=== PATIENT | female | born 1985 | race Caucasian/White ===

== ENCOUNTER 2023-06-20 21:34 | Inpatient (IN) | payer OTHER ==
--- OUTSIDE RECORDS SUMMARY | 2023-06-20 21:37 | XMS REPORT | Continuity of Care Document ---
Author Name Unknown Address [address] [place] [id number] [facility] thconnect Address [address] [place] [address] Care Team Providers Care Director Of Primary Name Role Phone Unavailable Unavailable Unavailable Payers Payer Name Policy Type Policy Number Effective Date Expirati on Date Source Results Test Description Test Time Test Comments Results Resul t Comments Source - US PELVIS COMPLETE 2018-10-29 14:10:00 Patient Name: JV BELTRAN Unit No: [id number] EXAMS: CPT CODE: [id number] US PELVIS COMPLETE 23554 PELVIC ULTRASOUND, 10/29/2018: COMPARISON: None CLINICAL HISTORY: AUB IN MENSTRUAL CYCLE TECHNIQUE: Transabdominal and endovaginal scanning was performed. FINDINGS: The uterus measures 7.3 x 2.8 x 4.1 cm. The endometrial cavity is empty with a thickness of 7 mm. No uterine fibroids were seen. The right ovary measures 3.2 x 2.2 x 2.3 cm and contains several small subcentimeter follicles. The left ovary measures 3.1 x 2.0 x 1.3 cm and contains small subcentimeter follicles. Doppler flow is demonstrated in both ovaries. No free pelvic fluid. CONCLUSION: Multiple small bilateral ovarian follicles. The possibility of PCOS is raised. at 1410 Reported and signed by: Lucas Irwin MD CC: Dinh Delvalle MD Technologist: Cheyenne Bonner RDMS Probe: Trnscrbd D/ (1410) [email or web address] Orig Print D/T: S: 10/29/2018 (1414) [facility] NAME: JV BELTRAN [facility] Dinh Finley [address] : 1985 AGE: 33 SEX: F [place] [id number] LOC: XavierRAD PHONE #: [phone] EXAM DATE: 10/29/2018 STATUS: REG CLI FAX #: [phone] RAD NO: Page 1 Signed Report Patient Name: JV BELTRAN Unit No: [id number] EXAMS: CPT CODE: [id number] US PELVIS COMPLETE 78544 (Continued) [facility] NAME: JV BELTRAN Radiology Department PHYS: [facility]. - Dinh Finley [address] : 1985 AGE: 33 SEX: F [place] [id number] LOC: XavierRAD PHONE #: [phone] EXAM DATE: 10/29/2018 STATUS: REG CLI FAX #: [phone] RAD NO: Page 2 Signed Report - US TRANSVAGINAL W/PELVIS 2018-10-29 14:10:00 Patient Name: JV BELTRAN Unit No: [id number] EXAMS: CPT CODE: [id number] US TRANSVAGINAL W/PELVIS 12052 PELVIC ULTRASOUND, 10/29/2018: COMPARISON: None CLINICAL HISTORY: AUB IN MENSTRUAL CYCLE TECHNIQUE: Transabdominal and endovaginal scanning was performed. FINDINGS: The uterus measures 7.3 x 2.8 x 4.1 cm. The endometrial cavity is empty with a thickness of 7 mm. No uterine fibroids were seen. The right ovary measures 3.2 x 2.2 x 2.3 cm and contains several small subcentimeter follicles. The left ovary measures 3.1 x 2.0 x 1.3 cm and contains small subcentimeter follicles. Doppler flow is demonstrated in both ovaries. No free pelvic fluid. CONCLUSION: Multiple small bilateral ovarian follicles. The possibility of PCOS is raised. at 1410 Reported and signed by: Lucas Irwin MD CC: Dinh Delvalle MD Technologist: Cheyenne Bonner RDMS Probe: [id number] Trnscrbd D/ (1410) [email or web address] Orig Print D/T: S: 10/29/2018 (3424) [facility] NAME: JV BELTRAN Radiology [facility] Dinh Finley [address] : 1985 AGE: 33 SEX: F [place] [address] LOC: Mckenna.RAD PHONE #: [phone] EXAM DATE: 10/29/2018 STATUS: REG CLI FAX #: [phone] RAD NO: Page 1 Signed Report Patient Name: JV BELTRAN Unit No: [id number] EXAMS: CPT CODE: [id number] US TRANSVAGINAL W/PELVIS 67039 (Continued) [facility] NAME: JV BELTRAN Radiology Department PHYS: HAR[facility]. - Dinh Finley [address] : 1985 AGE: 33 SEX: F [place] [address] LOC: F.RAD PHONE #: [phone] EXAM DATE: 10/29/2018 STATUS: REG CLI FAX #: [phone] RAD NO: Page 2 Signed Report
[2023-06-20 22:16] VITALS: BMI 21.3
[2023-06-20] MEDS: NA CHLORIDE 0.9% 1,000 ML IV SCH (22:33)
[2023-06-20] MEDS: MORPHINE 2 MG/ML SYR IV PRN (22:33)
[2023-06-20] MEDS: CIPROFLOXACIN 400mg IV 400 MG/200 ML BAG IV ONE (22:37)
[2023-06-21] MEDS: METRONIDAZOLE 500mg IVPB 500 MG/100 ML BAG IV SCH (00:45)
[2023-06-21] MEDS ORDERED: ONDANSETRON 4 MG/2 ML VIAL ONE (07:07)
[2023-06-21] MEDS ORDERED: ROCURONIUM 50 MG/5 ML VIAL IV ONE (07:07)
[2023-06-21] MEDS ORDERED: FENTANYL CITR 100 MCG/2 ML ONE (07:07)
[2023-06-21] MEDS ORDERED: propofoL 200 MG/20 ML VIAL IV ONE (07:07)
[2023-06-21] MEDS ORDERED: MIDAZOLAM HCL 2 MG/2 ML INJ ONE (07:07)
[2023-06-21] MEDS ORDERED: KETOROLAC 30 MG/ML INJ ONE (07:07)
[2023-06-21] MEDS ORDERED: LIDOCAINE 1% MPF 5 ML VIAL ONE (07:07)
[2023-06-21] MEDS ORDERED: dexAMETHasone 10 MG/ML VIAL ONE (07:37)
--- NOTE | 2023-06-21 07:49 | P.BOP ---
Preoperative diagnosis: acute perforated appendicitis, peritonitis, intrabdominal abscess Postoperative diagnosis: same Primary procedure: Laparoscopic appendectomy Secondary procedure: Laparoscopic drainage of intraperitoneal abscess Estimated blood loss: <20cc Specimen: culture, urvashi Findings: as above Anesthesia: General Complications: None Drain(s): HUNTER drain Transferred to: Recovery Room Condition: Good
[2023-06-21] MEDS ORDERED: SODIUM CHLORIDE 0.9% 10ML INJ IV PRN (08:28)
--- NOTE | 2023-06-21 08:37 | HP ---
Date of Admission: 06/20/2023 Diagnoses: Right lower quadrant abdominal pain, appendicitis with intraabdominal abscess. Indication: This is a 37-year-old patient who comes to us with 3 days history of abdominal pain. Singh watters thought it was just cramps and she tried to last night showed to a local ER around the a [place] and she was diagnosed with acute appendicitis and also what could be the beginning of an abscess. I was called in this institution. We were able to overnight transfer the patient to this instituti on, start IV hydration and basically antibiotics and schedule her emergently for a surgery. She dayron es any trauma. She denies any dysuria, hematuria, hematochezia, melena. Denies any recent traveling out of the country. Denies any family member sick at home. Past Medical History: None. Allergies: INCLUDE LATEX. Social History: She does not smoke. She does not drink alcohol. Family History: Noncontributory. Past Surgical History: Shoulder surgery, AC joint. Review of Systems: Ten points, otherwise, unremarkable. Physical Examination: General: Patient is awake, alert. HEENT: Pupils are equal and reactive. Anicteric. Neck: Supple. Chest: Clear. Heart: S1-S2. Abdomen: Soft with right lower quadrant tenderness with psoas signs and Rovsing sign positive, guard ing present. Genitalia: Deferred. Rectal: Deferred. Breasts: Deferred. Extremities: Good capillary refill. Neuro: Cranial nerves 2-12 grossly within normal limits. Blood Work: Reviewed shows a WBC count of 29. CAT scan of the abdomen and pelvis done at the [place], shows an acute appendicitis with possible what could be abscess around the appendix. Assessment And Plan: This is a 37-year-old patient with acute abdominal pain, peritonitis present, l eukocytosis and a CAT scan showing appendicitis with the possibility of an abscess. The patient full y explained, started on IV hydration, antibiotics and she was fully explained the benefits, alternati ves, and risks of urgent laparoscopic possible open appendectomy with benefits, alternatives, and ris ks include, but not limited to infection, bleeding, damage to adjacent structures, anesthesia complic ation, intraabdominal abscess, ND, and even . She also understands this may not relieve any sym ptoms. She might need more than one surgical intervention. She understands the importance of antibi otics after therapy, most likely we are going to have drained and most likely she will require severa l days of hospital stay. DUTCH Voice ID: [id number]
[2023-06-21] MEDS: PANTOPRAZOLE 40 MG INJ IVP SCH (09:00)
[2023-06-21] MEDS: PIPER TAZO 3.375 GM in NA CHLORIDE 0.9% 100 ML IV SCH (09:00)
[2023-06-21] MEDS ORDERED: CIPROFLOXACIN 400mg IV 400 MG/200 ML BAG IV SCH (09:00)
[2023-06-21] MEDS: HYDROMORPHONE HCL 1 MG/ML INJ IV PRN (12:21)
[2023-06-21 14:05] LABS: Specific Gravity > 1.030 (1.005-1.030); Transitional Epithelial <5 /HPF (None Seen); Urine Bacteria 20-50 /HPF (<20); Urine Bilirubin NEGATIVE (Negative); Urine Blood 3+ (OVER) (Negative); Urine Clarity Extremely Turbid (Clear); Urine Color Light-Orange (Yellow); Urine Glucose TRACE (Negative); Urine Mucus 4+ /HPF (None Seen); Urine Protein 2+ (Negative); Urine RBC >50 /HPF (None Seen); Urine Urobilinogen 1+ (Normal); Urine pH 6.5 (5.0-7.0)
--- NOTE | 2023-06-21 19:55 | OP ---
Date of Procedure: 06/21/2023 Surgeon: Dalton Guadarrama MD Preoperative Diagnoses: Acute perforated appendicitis, peritonitis, intraabdominal abscess. Postoperative Diagnoses: Acute perforated appendicitis, peritonitis, intraabdominal abscess. Procedures: Laparoscopic appendectomy, laparoscopic drainage of intraperitoneal abscess. Specimen: Culture of appendix. Findings: Right lower quadrant abscess with perforated appendicitis, peritonitis. Anesthesia: General plus local. Drains: HUNTER #10. Indications: This is a case of a 37-year-old female transferred from another institution with the ab ove diagnosis, admitted to the hospital. She was started on IV fluids, IV antibiotics and scheduled for emergent surgery. The benefits, alternatives, and risks of laparoscopic possible open appendecto my fully explained, which include, but not limited to infection, bleeding, damage to adjacent structu res, anesthesia complication, recurrence of abscess, FL, and even . She also understands this m ay not relieve her symptoms. She might need more than one surgical intervention. She understood and signed a consent. Description Of Procedure: The patient was brought to the operating room and placed in supine positio n. Anesthesia was done without complication. Abdominal area was prepped and draped in a sterile fas hion. A time-out was called. Local anesthesia was applied in the infraumbilical region. Incision w as carried down in the skin all the way down to fascia, which was opened under direct vision, but the peritoneum was encountered, opened under direct vision. Vicryl #1 was placed inside the fascia. Estrada sson trocar was carefully introduced. No bleeding was obtained. Immediately noticed the patient to have an abscess in the right lower quadrant with what it looked like a perforated appendicitis, so ca refully we proceeded to dissect the area properly to make sure the intestines were away and undamaged and found out at least the base of the appendix seemed to be spared for this, so we created a window in the base of the appendix, transected that with Endo WATSON 45 mm nonvascular and the mesoappendix wi th a 45 mm avascular. Before that I have to mention that we already have 5 mm trocars in direct visu alization placed in the suprapubic and left lower quadrant. Once we have the appendix dissected, we proceeded then to put the Endobag and removed the appendix through the umbilical incision. After delilah t, we proceeded to use irrigation at least more than 4 L of water just to irrigate the abdomen and lulu gurrola sure it is clean. We checked for hemostasis. We also left a HUNTER drain exiting through one of the trocar sites. Inspection once again of the area showed clear fluid. The area was profusely irrigate d. No bleeding. No bowel leak. At that moment, I proceeded to remove the trocars under direct visi on, deflated pneumoperitoneum, closed the fascia with #1 Vicryl, irrigated the subcutaneous tissue, c losed that with chromic and patrick. HUNTER drain was left to bulb suction. The patient tolerated the p rocedure well. The patient was sent to Recovery in stable condition. We expect this patient to be f or several days in the hospital with IV antibiotics. CESAR/MODL Voice ID: [id number] Report ID: [id number]
[2023-06-21] MEDS: clonazePAM 0.5 MG TAB PO ONE (22:18)
[2023-06-22 09:39] LABS: Absolute Lymphocytes (CBC) 1.1 K/uL (0.7-4.9); Hematocrit 33.6 % (36.0-45.0); Lymphocytes % 7.4 % (15.3-44.8); MCV 90.8 fL (80-100); MPV 7.5 fL (7.6-11.3); Platelets 289 thou/uL (152-406); RBC Red Blood Cell Count 3.69 M/uL (3.86-4.86)
[2023-06-22 11:10] LABS: Blood Morphology Comment NOT SEEN (NOT SEEN); Platelet Estimate ADEQ; White Blood Cell Scan OK (OK)
[2023-06-22] MEDS: clonazePAM 0.5 MG TAB PO SCH (12:07)
[2023-06-22] MEDS: POTASSIUM 25 MEQ EFFERV TAB PO ONE ×2 (12:44→21:48)
--- NOTE | 2023-06-22 13:36 | P.CNS ---
Date of Consult: 06/22/23 Requesting Physician: Dalton Guadarrama History of Present Illness: 37-year-old female with history of anxiety/depression was admitted to the hospital for acute appendicitis. Appendectomy was performed on 06/21/[address] Guadarrama, she was found to have acute perforated appendicitis with peritonitis and intra-abdominal abscess. Postoperatively HUNTER drain is in place. She has been doing well postoperatively, tolerating her diet today for the first time. Hospitalist service was consulted for medical management of her anxiety/depression. Allergies Latex, Natural Rubber Allergy (Verified 06/20/23 22:07) Rash Home Medications: Amphet Asp/Amphet/D-Amphet [Adderall 30 mg Tablet] 30 mg PO BID 06/20/23 Buspirone HCl [Buspar] 10 mg PO BID 06/20/23 clonazePAM [Clonazepam] 0.5 mg PO DAILY 06/20/23 - Past Medical/Surgical History Diabetic: No -: ADHD -: Depression -: anxiety -: right shoulder AC reconstrustion Psychosocial/ Personal History: Lives at home with significant other - Social History Smoking Status: Never smoker Alcohol use: Yes CD- Drugs: No Caffeine use: Yes Place of Residence: Home Review of Systems 10-point ROS is otherwise unremarkable General: Other (anxiety) Gastrointestinal: Abdominal Pain Physical Examination Temp Pulse Resp BP Pulse Ox 97.5 F 64 16 116/60 97 06/22/23 12:00 06/22/23 12:00 06/22/23 13:00 06/22/23 12:00 06/22/23 13:00 General: Alert, In no apparent distress, Oriented x3 HEENT: Atraumatic, PERRLA, Mucous membr. moist/pink Neck: Supple, 2+ carotid pulse no bruit, No LAD Respiratory: Clear to auscultation bilaterally, Normal air movement Cardiovascular: Regular rate/rhythm, Normal S1 S2 Gastrointestinal: Other (HUNTER drain in place) Musculoskeletal: No tenderness Integumentary: No rashes Neurological: Normal speech, Normal tone, Normal affect Laboratory Data (last 24 hrs) 06/22/23 06/22/23 09:29 09:29 WBC 15.00 H Hgb 11.2 L Hct 33.6 L Plt Count 289 Sodium 138 Potassium 3.0 L BUN 6 L Creatinine 0.61 Glucose 128 H Conclusions/Impression: Assessment: Acute perforated appendicitis with abscess S/P appendectomy with HUNTER drain in place 06/21/2023 Anxiety/depression Plan: Acute perforated appendicitis with abscess S/P appendectomy with HUNTER drain in place 06/21/2023 Continue Zosyn Pain medications and diet per general surgery Anxiety/depression Continue buspirone, clonazepam DVT PPX: SCDs Code status: Full Critical Care: No Time Spent Managing Pts care (In Minutes): 30
--- NOTE | 2023-06-22 14:31 | PN ---
Date of Progress Note: 06/22/2023 Diagnosis: Acute ruptured appendicitis with intraabdominal abscess. Subjective: The patient is doing well. She is having some issues dealing with the situation itself . She takes normally BuSpar, clonazepam, and Adderall at home. We are going to ask the spitalist to help us with the medication and dosages on those. She denies any shortness of breath, a ny chest pain. Objective: Chest: Clear. ABDOMEN: Soft and depressible. Intact surgical site. HUNTER drain serosanguineous. Extremities: Good capillary refill. Laboratory Data: WBC count is already coming down to 15, with hemoglobin up to 11.2, potassium 3.0. We are going to be replacing that. Plan: Potassium replacement, ambulation, incentive spirometry. Continue IV antibiotics. Follow up on the cultures. CESAR/MODL Voice ID: [id number] Report ID: [id number]
[2023-06-22] MEDS: ONDANSETRON 4 MG/2 ML VIAL IV PRN (20:48)
[2023-06-22] MEDS ORDERED: BUSPIRONE HCL 5 MG TABLET PO SCH ×2 (21:00)
[2023-06-23] MEDS: ONDANSETRON 4 MG/2 ML VIAL IV ONE (07:09)
[2023-06-23 08:37] LABS: Hematocrit 35.3 % (36.0-45.0); MCV 90.8 fL (80-100); MPV 7.4 fL (7.6-11.3); Platelets 325 thou/uL (152-406); RBC Red Blood Cell Count 3.89 M/uL (3.86-4.86)
[2023-06-23 08:42] LABS: Potassium 3.5 mEq/L (3.5-5.1)
[2023-06-23] MEDS: POTASSIUM 25 MEQ EFFERV TAB PO ONE (08:48)
[2023-06-23] MEDS: BUSPIRONE 10 MG TABLET PO SCH (09:00)
[2023-06-23] MEDS: PROMETHAZINE INJ 25 MG/ML AMP IV ONE (09:14)
--- NOTE | 2023-06-23 13:03 | P.PN ---
Subjective Date of Service: 06/23/23 Subjective: Improving no tolerating diet yet Review of Systems Respiratory: Unremarkable Cardiovascular: Unremarkable Gastrointestinal: Nausea, Abdominal Pain (better), Melena (no), Hematochezia (no) Neurological: Weakness Physical Examination - Vital Signs Temperature: 97.5 F Blood Pressure: 162/90 Pulse: 68 Respirations: 14 Pulse Ox (%): 99 - Physical Exam General: Alert, Oriented x3, Cooperative HEENT: Normocephalic, PERRLA Neck: Supple Respiratory: Normal air movement Cardiovascular: No edema, Normal pulses Gastrointestinal: Tenderness (improving) Integumentary: No rashes, No breakdown, No tenderness/swelling, No erythema, No warmth, No cyanosis Neurological: Normal speech - Studies Laboratory Data (last 24 hrs) 06/23/23 06/23/23 06/22/23 08:03 08:03 18:18 WBC 9.70 Hgb 11.9 L Hct 35.3 L Plt Count 325 Sodium 138 Potassium 3.5 3.5 D BUN 4 L Creatinine 0.57 Glucose 107 H Microbiology Data (last 24 hrs): 06/21/23 08:00 Body Fluid - Abdomen Gram Stain - Final 06/21/23 08:00 Body Fluid - Abdomen Culture & Sensitivity - Final No growth. 06/21/23 13:13 Clean Catch Urine [place] Count - Final No growth. 06/21/23 13:13 Clean Catch Urine - Final No growth. Assessment And Plan - Plan advance diet as tolerated cont IV abc ( peroforated appendicitis with abscess) incentive spirometry scd ambulate
--- NOTE | 2023-06-23 14:33 | P.PN ---
Date of Service: 06/23/23 Subjective: Pain improving still with nausea/vomiting after clear liquids ROS: 10 point ROS as noted above, otherwise negative Physical exam GEN: Alert, oriented, NAD HEENT: Normal conjunctiva, sclera anicteric CV: Regular rate and rhythm, no edema Pulm: Nonlabored respirations on room air ABD: Soft, nontender, nondistended, HUNTER drain in place x1 MSK: No joint tenderness Integumentary: No rashes Neuro: Normal speech, normal affect Vitals reviewed Assessment: Acute perforated appendicitis with abscess S/P appendectomy with HUNTER drain in place 06/21/2023 Anxiety/depression Plan: Acute perforated appendicitis with abscess S/P appendectomy with HUNTER drain in place 06/21/2023 Continue Zosyn PRN pain meds and anti-emetics Clear liquids for now, try fulls again at dinner Anxiety/depression Continue buspirone, clonazepam DVT PPX: SCDs Code status: Paint Technician Spent Managing Pts Care (In Minutes): 35
[2023-06-24 07:03] LABS: MCV 88.6 fL (80-100); MPV 7.2 fL (7.6-11.3); Platelets 415 thou/uL (152-406); RBC Red Blood Cell Count 3.84 M/uL (3.86-4.86)
[2023-06-24 07:26] LABS: Bicarbonate 28 mEq/L (21-32); Glomerular Filtration Rate 128 ml/min (=/>90); Glucose Level 99 mg/dL (74-106); Potassium 3.2 mEq/L (3.5-5.1); Sodium Level 138 mEq/L (136-145)
[2023-06-24 07:29] LABS: BUN Blood Urea Nitrogen < 3 mg/dL (7-18)
--- NOTE | 2023-06-24 10:24 | P.PN ---
Date of Service: 06/24/23 Subjective: Pain, appetite improving no acute events overnight ROS: 10 point ROS as noted above, otherwise negative Physical exam GEN: Alert, oriented, NAD HEENT: Normal conjunctiva, sclera anicteric CV: Regular rate and rhythm, no edema Pulm: Nonlabored respirations on room air ABD: Soft, nontender, nondistended, HUNTER drain in place x1 MSK: No joint tenderness Integumentary: No rashes Neuro: Normal speech, normal affect Vitals reviewed Assessment: Acute perforated appendicitis with abscess S/P appendectomy with HUNTER drain in place 06/21/2023 Anxiety/depression Plan: Acute perforated appendicitis with abscess S/P appendectomy with HUNTER drain in place 06/21/2023 Continue Zosyn PRN pain meds and anti-emetics Full liquid-further diet per surgery Anxiety/depression Continue buspirone, clonazepam DVT PPX: SCDs Code status: Serologist Spent Managing Pts Care (In Minutes): 25
--- NOTE | 2023-06-24 13:17 | P.PN ---
Subjective Date of Service: 06/24/23 Chief Complaint: ruptre appendicitis, peritonitis, intrabdominal abscess Subjective: Improving no tolerating diet yet Review of Systems General: Weakness, Malaise, Other (Stll requiring IV pain meds) Gastrointestinal: Nausea, Distention Genitourinary: Frequency Neurological: Weakness Physical Examination - Vital Signs Temperature: 97.9 F Blood Pressure: 112/71 Pulse: 51 Respirations: 16 Pulse Ox (%): 100 - Physical Exam General: Alert, In no apparent distress, Oriented x3, Cooperative HEENT: PERRLA, EOMI Neck: Supple Gastrointestinal: Hypoactive, Tenderness Musculoskeletal: No erythema, No tenderness, No warmth Integumentary: No rashes, No breakdown, No tenderness/swelling, No erythema, No warmth, No cyanosis Neurological: Normal speech - Studies Laboratory Data (last 24 hrs) 06/24/23 06/24/23 06:20 06:20 WBC 11.50 H Hgb 11.7 L Hct 34.0 L Plt Count 415 H D Sodium 138 Potassium 3.2 L BUN < 3 L Creatinine 0.46 L Glucose 99 Microbiology Data (last 24 hrs): 06/21/23 08:00 Body Fluid - Abdomen Gram Stain - Final 06/21/23 08:00 Body Fluid - Abdomen Culture & Sensitivity - Final No growth. 06/21/23 13:13 Clean Catch Urine [place] Count - Final No growth. 06/21/23 13:13 Clean Catch Urine - Final No growth. Assessment And Plan - Plan advance diet as tolerated cont IV abx ( peroforated appendicitis with abscess), UTI ID consult incentive spirometry scd ambulate
[2023-06-25 07:00] LABS: Hematocrit 35.9 % (36.0-45.0); MCV 88.6 fL (80-100); Platelets 440 thou/uL (152-406); RBC Red Blood Cell Count 4.05 M/uL (3.86-4.86)
[2023-06-25 07:17] LABS: Bicarbonate 30 mEq/L (21-32); Glomerular Filtration Rate 128 ml/min (=/>90); Glucose Level 92 mg/dL (74-106); Potassium 3.1 mEq/L (3.5-5.1); Sodium Level 138 mEq/L (136-145)
[2023-06-25 07:24] LABS: BUN Blood Urea Nitrogen < 3 mg/dL (7-18)
--- NOTE | 2023-06-25 09:24 | P.CNS ---
Date of Consult: 06/25/23 Reason for Consult: perforated appendix with intraabdominal abscess Chief Complaint: rupture appendicitis, peritonitis, intrabdominal abscess History of Present Illness: Patient is a 37 yo female with a medical history of anxiety/depression who was admitted to the hospital for acute appendicitis. Patient underwent appendectomy on 06/[address] Guadarrama and was found to have perforated appendicitis with peritonitis and intraabdominal abscess. Infectious disease was consulted. Allergies Latex, Natural Rubber Allergy (Verified 06/20/23 22:07) Rash Home medications list reviewed: Yes Home Medications: Amphet Asp/Amphet/D-Amphet [Adderall 30 mg Tablet] 30 mg PO BID 06/20/23 Buspirone HCl [Buspar] 10 mg PO BID 06/20/23 clonazePAM [Clonazepam] 0.5 mg PO DAILY 06/20/23 - Past Medical/Surgical History Diabetic: No -: ADHD -: Depression -: anxiety -: right shoulder AC reconstrustion Psychosocial/ Personal History: Lives at home with significant other - Social History Smoking Status: Never smoker Alcohol use: Yes CD- Drugs: No Caffeine use: Yes Place of Residence: Home Review of Systems 10-point ROS is otherwise unremarkable Gastrointestinal: Abdominal Pain Physical Examination Temp Pulse Resp BP Pulse Ox 96.8 F 55 16 118/64 98 06/25/23 08:00 06/25/23 08:00 06/25/23 08:00 06/25/23 08:00 06/25/23 08:00 General: Alert, In no apparent distress, Oriented x3 HEENT: Atraumatic, Normocephalic Respiratory: Clear to auscultation bilaterally, Normal air movement Cardiovascular: No edema, Normal pulses, Regular rate/rhythm Gastrointestinal: Normal bowel sounds, Tenderness (incision site) Integumentary: No rashes, Other (surgical incision site abdomen with HUNTER drain noted) Neurological: Normal speech, Normal tone, Normal affect Laboratory Data 06/25/23 06/25/23 06:22 06:22 WBC 10.30 Hgb 12.4 Hct 35.9 L Plt Count 440 H Sodium 138 Potassium 3.1 L BUN < 3 L Creatinine 0.46 L Glucose 92 Microbiology Data - Reviewed Imagings Data: - Reviewed Conclusions/Impression: Problem List Perforated appendicitis with intra-abdominal abscess Anxiety/Depression Perforated appendicitis with intra-abdominal abscess - s/p appendectomy on 06/[address] Guadarrama - abdominal abscess culture 06/21: no growth to date - On Zosyn (started 06/21) - Leukocytosis improving (WBC 15 -> 9.7 -> 11.5 -> 10.3) - Afebrile Urine culture 06/21: no growth to date Recommendations: - Continue antibiotic therapy for 14 days (06/21-07/04). - Continue Zosyn for now. - Consider switch to Ciprofloxacin PO plus Flagyl PO upon discharge to complete remainder of antibiotic course. - Advance diet as tolerated - Surgical site care per Dr. Guadarrama - Monitor CBC and fever trends - Pain management per primary team Case discussed with Joaquina Alfaro
--- NOTE | 2023-06-25 18:07 | P.PN ---
Date of Service: 06/25/23 Subjective: Feeling well, no new complaints diet advanced today ROS: 10 point ROS as noted above, otherwise negative Physical exam GEN: AAO x3, NAD, calm HEENT: Normal conjunctiva, sclera anicteric CV: RRR, no edema, no murmur present, S1 S2 noted Pulm: Nonlabored respirations on room air ABD: Soft, nontender, nondistended, Bowel sounds present, HUNTER drain in place x1, MSK: No joint tenderness Integumentary: No rashes Neuro: Normal speech, normal affect Vitals reviewed Assessment: Acute perforated appendicitis with abscess S/P appendectomy with HUNTER drain in place 06/21/2023 Anxiety/depression Plan: Acute perforated appendicitis with abscess S/P appendectomy with HUNTER drain in place 06/21/2023 Continue Zosyn PRN pain meds and anti-emetics Regular diet per surgery infectious disease consulted and recommend zosyn while inpatient, cipro and flagyl upon dischare - expected to complete antibiotic course of 14 days (06/21-07/04) Anxiety/depression Continue buspirone BID, clonazepam daily DVT PPX: SCDs Code status: Full
[2023-06-25] MEDS: POTASSIUM CL SA 10 MEQ TAB PO ONE (19:48)
[2023-06-26 03:39] LABS: Hematocrit 34.8 % (36.0-45.0); MCV 88.9 fL (80-100); Platelets 481 thou/uL (152-406); RBC Red Blood Cell Count 3.92 M/uL (3.86-4.86)
[2023-06-26 03:46] LABS: Bicarbonate 32 mEq/L (21-32); Glomerular Filtration Rate 118 ml/min (=/>90); Glucose Level 134 mg/dL (74-106); Potassium 3.7 mEq/L (3.5-5.1); Sodium Level 142 mEq/L (136-145)
[2023-06-26 03:47] LABS: BUN Blood Urea Nitrogen < 3 mg/dL (7-18)
[2023-06-26] MEDS: POTASSIUM CL SA 10 MEQ TAB PO ONE (08:37)
--- NOTE | 2023-06-26 09:17 | P.PN ---
Date of Service: 06/26/23 Chief Complaint: rupture appendicitis, peritonitis, intrabdominal abscess Subjective: In no apparent distress. + abdominal pain, improving. Tolerating diet. BM today. No acute events overnight. Physical Examination Temp Pulse Resp BP Pulse Ox 97.9 F 74 18 131/58 L 94 06/26/23 04:00 06/26/23 04:00 06/26/23 08:38 06/26/23 04:00 06/26/23 08:38 General: Alert, In no apparent distress, Oriented x3 HEENT: Atraumatic, Normocephalic Respiratory: Clear to auscultation bilaterally, Normal air movement Cardiovascular: No edema, Normal pulses, Regular rate/rhythm Gastrointestinal: Normal bowel sounds. Abdominal surgical incision site. Integumentary: Skin warm and dry. Surgical incision site abdomen with HUNTER drain noted. Dressing clean dry and intact. Neurological: Normal speech, Normal tone, Normal affect Laboratory Data - Reviewed Microbiology Data - Reviewed Imagings Data: - Reviewed Medication List: Reviewed Assessment and Plan Problem List Perforated appendicitis with intra-abdominal abscess Anxiety/Depression Perforated appendicitis with intra-abdominal abscess - s/p appendectomy on 06/[address] Guadarrama - abdominal abscess culture 06/21: no growth to date - On Zosyn (started 06/21) - Leukocytosis improving (WBC 15 -> 9.7 -> 11.5 -> 10.3) - Afebrile Urine culture 06/21: no growth to date Recommendations: - Continue antibiotic therapy for 10 days (06/21-07/01). - Continue Zosyn for now. - Consider switch to Ciprofloxacin PO plus Flagyl PO upon discharge to complete remainder of antibiotic course. - Advance diet as tolerated - Surgical site care per Dr. Guadarrama - Monitor CBC and fever trends - Pain management per primary team Case discussed with Joaquina Alfaro
[2023-06-26] MEDS: HYDROCODONE/APAP 7.5/325 MG TAB PO PRN (17:18)
[2023-06-26] MEDS: ALPRAZOLAM 0.5 MG TABLET PO ONE (18:00)
--- NOTE | 2023-06-26 18:55 | P.PN ---
Date of Service: 06/26/23 Subjective: New onset edema to evy area and bilateral LE C/o pain to lower abdomen, x[place] drainage has slowed down ROS: 10 point ROS as noted above, otherwise negative Physical exam GEN: AAO x3, NAD, anxious HEENT: Normal conjunctiva, sclera anicteric CV: RRR, trace edema to BLE, no murmur present, S1 S2 noted Pulm: Nonlabored respirations on room air ABD: Soft, nontender, nondistended, Bowel sounds present, HUNTER drain in place x1 MSK: No joint tenderness Integumentary: No rashes Neuro: Normal speech, normal affect Vitals reviewed Assessment: Acute perforated appendicitis with abscess S/P appendectomy with HUNTER drain in place 06/21/2023 Anxiety/depression Plan: Acute perforated appendicitis with abscess S/P appendectomy with HUNTER drain in place 06/21/2023 Continue Zosyn PRN pain meds and anti-emetics Regular diet per surgery infectious disease consulted and recommend zosyn while inpatient, cipro and flagyl upon dischare - expected to complete antibiotic course of 14 days (06/21-07/04) [facility] for DVT r/o Anxiety/depression Continue buspirone BID, Clonazepam daily xanax added today DVT PPX: SCDs Code status: Full
--- NOTE | 2023-06-26 19:25 | RAD REPORT ---
EXAM DESCRIPTION: US - Extrem Venous W Compress Eduardo - 06/26/2023 6:42 pm CLINICAL HISTORY: Edema, mottled skin. Concern for DVT. COMPARISON: None. TECHNIQUE: Real-time sonographic evaluation of the bilateral lower extremity deep venous systems was performed. FINDINGS: Normal compressibility, flow augmentation, phasic flow and spontaneous flow is identified in both the left and right lower extremity deep venous systems. No intraluminal filling defects seen. IMPRESSION: No evidence of DVT in either lower extremity.
--- NOTE | 2023-06-26 19:51 | P.PN ---
Subjective Date of Service: 06/26/23 Chief Complaint: rupture appendicitis, peritonitis, intrabdominal abscess Subjective: Ambulating, Improving no tolerating diet yet Review of Systems Eyes: Unremarkable ENT: Unremarkable Respiratory: Unremarkable Cardiovascular: Unremarkable Gastrointestinal: As per HPI Genitourinary: As per HPI Integumentary: Unremarkable Neurological: Unremarkable Physical Examination - Vital Signs Temperature: 97 F Blood Pressure: 156/93 Pulse: 74 Respirations: 18 Pulse Ox (%): 93 - Physical Exam General: Alert, In no apparent distress, Oriented x3, Cooperative HEENT: Normocephalic, PERRLA, EOMI Neck: Supple Cardiovascular: No edema, Normal pulses Gastrointestinal: Soft and benign (HUNTER clear) Musculoskeletal: No tenderness Integumentary: No rashes Neurological: Normal speech - Studies Laboratory Data (last 24 hrs) 06/26/23 06/26/23 03:00 03:00 WBC 14.00 H Hgb 12.1 Hct 34.8 L Plt Count 481 H Sodium 142 Potassium 3.7 D BUN < 3 L Creatinine 0.65 Glucose 134 H Assessment And Plan - Plan ok to go home from surgical standpoint once medically cleared ( edema work up pending by medicine) incentive spirometry at home f/u office saturday care ambulate Cipro and flagyl called by me already
[2023-06-27 04:37] VITALS: O2SAT 99
[2023-06-27 07:45] LABS: Albumin 2.3 g/dL (3.4-5.0); Bilirubin Total 0.2 mg/dL (0.2-1.0); Potassium 3.9 mEq/L (3.5-5.1); Protein, Total 5.3 g/dL (6.4-8.2)
--- NOTE | 2023-06-27 08:48 | P.PN ---
Date of Service: 06/27/23 Chief Complaint: rupture appendicitis, peritonitis, intrabdominal abscess Subjective: In no apparent distress. No acute events overnight. + abdominal pain Ambulating. Physical Examination Temp Pulse Resp BP Pulse Ox 97.8 F 106 H 19 169/75 H 99 06/27/23 04:00 06/27/23 04:00 06/27/23 04:00 06/27/23 04:00 06/27/23 04:00 General: Alert, In no apparent distress, Oriented x3 HEENT: Atraumatic, Normocephalic Respiratory: Clear to auscultation bilaterally, Normal air movement Cardiovascular: No edema, Normal pulses, Regular rate/rhythm Gastrointestinal: Normal bowel sounds. Abdominal surgical incision site. Integumentary: Skin warm and dry. Surgical incision site abdomen with HUNTER drain noted. Dressing clean dry and intact. Neurological: Normal speech, Normal tone, Normal affect Laboratory Data - Reviewed Microbiology Data - Reviewed Imagings Data: - Reviewed Medication List: Reviewed Assessment and Plan Problem List Perforated appendicitis with intra-abdominal abscess Anxiety/Depression Perforated appendicitis with intra-abdominal abscess - s/p appendectomy on 06/[address] Guadarrama - abdominal abscess culture 06/21: no growth to date - On Zosyn (started 06/21) - Leukocytosis improving (WBC 15 -> 9.7 -> 11.5 -> 10.3) - Afebrile Urine culture 06/21: no growth to date Recommendations: - Continue antibiotic therapy for 10 days (06/21-07/01). - Continue Zosyn for now. - Consider switch to Ciprofloxacin PO plus Flagyl PO upon discharge to complete remainder of antibiotic course. - Advance diet as tolerated - Surgical site care per Dr. Guadarrama - Monitor CBC and fever trends - Pain management per primary team - Patient has follow up appointment with Dr. Guadarrama on Saturday 07/01. Case discussed with Joaquina Alfaro
[2023-06-27 10:00] VITALS: BP 134/73; TEMP 97
[2023-06-27] MEDS: MORPHINE 2 MG/ML SYR IV ONE (10:50)
[2023-06-27] MEDS: ONDANSETRON 4 MG/2 ML VIAL IV ONE (10:51)
--- NOTE | 2023-06-27 13:20 | P.DS ---
Admission Date: 06/20/23 Discharge Date: 06/27/23 Disposition: ROUTINE DISCHARGE Discharge Condition: GOOD Reason for Admission: rupture appendicitis, peritonitis, intrabdominal abscess Vital Signs/Physical Exam: Temp Pulse Resp BP Pulse Ox 97.0 F 71 19 134/73 99 06/27/23 08:00 06/27/23 08:00 06/27/23 10:50 06/27/23 08:00 06/27/23 10:50 Laboratory Data at Discharge: WBC 14.00 thou/uL (4.3-10.9) H 06/26/23 03:00 Hgb 12.1 g/dL (12.0-15.0) 06/26/23 03:00 Hct 34.8 % (36.0-45.0) L 06/26/23 03:00 Plt Count 481 thou/uL (152-406) H 06/26/23 03:00 Sodium 140 mEq/L (136-145) 06/27/23 06:50 Potassium 3.9 mEq/L (3.5-5.1) 06/27/23 06:50 BUN 3 mg/dL (7-18) L 06/27/23 06:50 Creatinine 0.86 mg/dL (0.55-1.02) 06/27/23 06:50 Glucose 115 mg/dL (74-106) H 06/27/23 06:50 Total Bilirubin 0.2 mg/dL (0.2-1.0) 06/27/23 06:50 AST 26 U/L (15-37) 06/27/23 06:50 ALT 24 U/L (13-56) 06/27/23 06:50 Alkaline Phosphatase 50 U/L (45-117) 06/27/23 06:50 Home Medications: Amphet Asp/Amphet/D-Amphet [Adderall 30 mg Tablet] 30 mg PO BID 06/20/23 Buspirone HCl [Buspar] 10 mg PO BID 06/20/23 clonazePAM [Clonazepam] 0.5 mg PO DAILY 06/20/23 Tramadol HCl 100 mg PO Q6H 4 Days #15 tab 06/27/23 New Medications: Tramadol HCl 100 mg PO Q6H 4 Days #15 tab Physician Discharge Instructions: Leyda Wallace presented to the ED with complaints of nausea, vomitting, and abdominal pain. CT from outside facility reported appendicitis and she was a direct admit to the fourth floor. Surgical procedure performed on 06/21. Edema started on 06/27, ultrasound of bilateral lower extremities was negative for DVT. Hypoalbuminemia d/t lack of PO intake while ill. Will start vitamin D daily and increase protein diet. Dr. Guadarrama has cleared for discharge. Please follow up with him. 1. Follow up with Dr. Guadarrama for HUNTER drain monitoring 2. Follow up with PCP for continued medical management 3. High protein diet and 5,000 IU vitamin D supplements daily for two weeks 4. 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 activity as tolerated, please walk to decrease pneumonia and blood clot risk 7. return to the ED if symptoms worsen New medications Ciprofloxacin Flagyl Tramadol Hypoalbuminemia- decreased albumin in your system Taking vitamins (vitamin D) and eating a well-balanced diet full of protein like lean meats, fish, nuts (almonds, cashews, walnuts, etc.) and eggs, along with dairy products (milk, yogurt, cheese) and whole-grain carbohydrates (bread and rice) can increase the amount of albumin your body produces Diet: Regular Activity: Ad jas Followup: Dalton Guadarrama MD [ACTIVE - CAN ADMIT] - 1 Week (call for appointment.)
== END 2023-06-27 12:00 | disposition home or self-care (01) | DRG 398 ==
LOC: 4TH 21:34
PROVIDERS: ADMIT Surgery; ATTEND Surgery
PROC: 0W9G4ZZ Drainage of Peritoneal Cavity, Percutaneous Endoscopic Approach (ICD-10-PCS; 2023-06-21)
PROC: 0DTJ4ZZ Resection of Appendix, Percutaneous Endoscopic Approach (ICD-10-PCS; principal; 2023-06-21 07:30)
DX: K35.33 Acute appendicitis with perforation, localized peritonitis, and gangrene, with abscess (principal); N39.0 Urinary tract infection, site not specified; F41.9 Anxiety disorder, unspecified; F32.A Depression, unspecified; E88.09 Other disorders of plasma-protein metabolism, not elsewhere classified; Z91.040 Latex allergy status; Z79.899 Other long term (current) drug therapy
CPT/HCPCS: 36415; 80048; 80053; 81001; 82040; 84132; 85025; 85027; 87070; 87086; 87088; 88304; 93970; 94010; 97116; 97161; C9113; J0744; J1100; J1170; J2001; J2250; J2270; J2405; J2543; J2550; J2704; J3010; J7030